=== PATIENT | female | born 2000 | race Caucasian/White ===

== ENCOUNTER 2021-06-25 11:42 | Emergency (ER) | payer BC, SELFPAY ==
[2021-06-25 12:03] VITALS: BP 120/86; PULSE 78; RESP 16; TEMP 36.8; O2SAT 100
--- NOTE | 2021-06-25 12:47 | ED.URI ---
HPI - URI/Sore Throat General Chief Complaint: Upper Respiratory Infection Stated Complaint: cough/sob Time Seen by Provider: 06/25/21 12:47 Source: patient, RN notes reviewed and old records reviewed Mode of arrival: ambulatory Limitations: no limitations History of Present Illness HPI Narrative: 20-year-old female who presents to [facility] with complaints of history of cough, headaches, tightness to her upper chest and some shortness of breath for the past 2-3 days. Patient reports that she has a history of asthma and has been using her daily Qvar as prescribed and has had to use her Albuterol inhaler more frequently. Patient states that she has had COVID immunizations and Booster and Flu shot. Patient states that she has had some nasal drainage and also a sore throat. MD elicited complaint: cough, sore throat and other (BORJA) Pertinent past history: asthma Onset (ago): day(s) (2-3 days) Consistency: progressively worsening Treatments prior to arrival: other (inhalers) Related Data Home Medications Medication Instructions Recorded Confirmed ascorbate sodium (vitamin C) 06/25/21 cholecalciferol (vitamin D3) 06/25/21 Allergies Allergy/AdvReac Type Severity Reaction Status Date / Time No Known Allergies Allergy Unverified 01/27/21 15:10 Review of Systems Review of Systems: CONSTITUTIONAL: Denies fever, chills, or sweats. EYES: Denies visual changes, redness, or discharge. ENT: Positive for rhinorrhea, congestion, sore throat, no otalgia. CARDIOVASCULAR: reports some upper chest discomfort with cough no palpitations, or edema. RESPIRATORY: Positive for cough or dyspnea. GASTROINTESTINAL: Denies abdominal pain, nausea, vomiting, or diarrhea. GENITOURINARY: Denies dysuria or hematuria. SKIN: Denies rash or itching. MUSCULOSKELETAL: Denies back pain, joint pain, or myalgia. NEUROLOGIC: Denies headache, numbness, or weakness. PSYCHIATRIC: Denies anxiety or depression. All systems reviewed & are unremarkable except as noted in HPI and below PMFSH Past Medical History Medical History (Updated 06/25/21 @ 22:57 by Sophia Monzon NP) Allergic asthma Blocked tear duct required surgical repair as child GERD (gastroesophageal reflux disease) Family History Family History Father Hypertension Mother Asthma Multiple sclerosis Grandparent , mm Hypertension Breast cancer in female Social History Social History Social History: Single Smoking status: Never smoker Second hand tobacco smoke exposure: No Alcohol intake: current Alcohol use details: Socially Substance use: never Substance use type: does not use Gender identity (if verbalized by the patient): Female Sexual Orientation (if Verbalized by the Patient): Straight or Heterosexual Comments At time of signature, agree with nursing past medical, surgical, social and family history. There is no relevant family history pertinent to the presenting complaint Exam Narrative: GENERAL: Well-appearing, well-nourished, and in no acute distress. HEAD: Normocephalic, atraumatic. EYES: PERRLA and EOMI. ENT: Nares with mild redness clear rhinorrhea no epistaxis. Mucous membranes moist.TM;s normal with good light reflex, throat red with no lesions or exudates no acute tonsil enlargement. NECK: Supple.no lymphadenopathy CHEST: Clear to auscultation. No respiratory distress.cough with some stated dyspnea especially with activity, no tachypnea, SAO2 100% on room air HEART: Regular rate and rhythm. No murmur heard. Normal peripheral pulses. ABDOMEN: Soft, nontender, nondistended, normal active bowel sounds. EXTREMITIES: Normal range of motion. No edema. SKIN: Warm, dry, no rash. NEURO: No focal deficits. Alert and oriented x3. Course Course Level of Care: Express Care Visit Vital Signs Vital signs: Vital Signs Tempera
== END 2021-06-25 13:31 | disposition home or self-care (01) ==
PROVIDERS: Emergency Provider Registered Nurse; PCP Family Medicine
DX: J45.31 Mild persistent asthma with (acute) exacerbation (principal); Z20.822 Contact with and (suspected) exposure to COVID-19; K21.9 Gastro-esophageal reflux disease without esophagitis
CPT/HCPCS: 87081; 87426; 87880; 99213; C9803; G0463